=== PATIENT | male | born 1990 | race Caucasian/White ===

== ENCOUNTER 2017-10-26 17:51 | Emergency (ER) | payer SELFPAY ==
[~2017-10-26] VITALS: Ht 210.8 cm; Wt 84.9 kg
[2017-10-26 18:28] VITALS: Ht 210.8 cm; Wt 84.9 kg
[2017-10-26 19:24] VITALS: BP 120/96
== END 2017-10-26 19:24 | disposition home or self-care (01) ==
LOC: ED 17:51
DX: S01.01XA Laceration without foreign body of scalp, initial encounter (principal); W22.8XXA Striking against or struck by other objects, initial encounter; Y93.89 Activity, other specified; Y92.89 Other specified places as the place of occurrence of the external cause; Y99.8 Other external cause status

== ENCOUNTER 2020-02-08 10:50 | Emergency (ER) | payer OTHER ==
[~2020-02-08] VITALS: Ht 185.4 cm; Wt 96.2 kg
[2020-02-08 11:08] VITALS: Ht 185.4 cm; Wt 96.2 kg
[2020-02-08 12:42] VITALS: BP 124/82
== END 2020-02-08 12:42 | disposition home or self-care (01) ==
LOC: ED 10:50
DX: S00.01XA Abrasion of scalp, initial encounter (principal); W11.XXXA Fall on and from ladder, initial encounter; Z98.890 Other specified postprocedural states; Y93.89 Activity, other specified; Y92.89 Other specified places as the place of occurrence of the external cause; Y99.8 Other external cause status